=== PATIENT | male | born 1940 | race Caucasian/White ===

== ENCOUNTER → 2018-02-22 13:48 | Outpatient (CLI) | payer MEDICARE, OTHER ==
[2013-01-25 16:41] VITALS: BMI 32.5
[~2018-02-22 13:48] MED LIST: ASPIRIN 81 MG E81 MG; ASPIRIN 81 MG E81 MG PO; DIOVAN320 MG PO; KLOR-CON M2020 MEQ PO; LASIX40 MG PO; NEXIUM40 MG PO; NORVASC10 MG PO; ONGLYZA5 MG PO; POTASSIUM99 M1; TOPROL XL25 MG PO; TRICOR145 MG PO; ZOCOR40 MG PO
== END | disposition home or self-care (01) ==
LOC: D.MRI 13:48
DX: R22.32 Localized swelling, mass and lump, left upper limb (principal)

== ENCOUNTER → 2018-05-18 08:12 | Outpatient (CLI) | payer MEDICARE, OTHER ==
[2013-01-25 16:41] VITALS: BMI 32.5
== END | disposition home or self-care (01) ==
LOC: D.HCCARDIO 08:12
PROVIDERS: ATTEND Internal Medicine Cardiovascular Disease
DX: Z95.4 Presence of other heart-valve replacement (principal)

== ENCOUNTER → 2019-07-28 09:25 | Outpatient (CLI) | payer MEDICARE, OTHER ==
[2013-01-25 16:41] VITALS: BMI 32.5
== END | disposition home or self-care (01) ==
LOC: D.HCCECHO 09:25
PROVIDERS: ATTEND Internal Medicine Cardiovascular Disease
DX: Z95.2 Presence of prosthetic heart valve (principal)